=== PATIENT | female | born 1955 | race Hispanic/Latino ===

== ENCOUNTER 2018-02-06 08:31 | Outpatient (CLI) | payer BC, SELFPAY | END 2018-02-06 08:32 | disposition home or self-care (01) | LOC: BICMAMMO 08:31 | PROVIDERS: ATTEND Student in an Organized Health Care Education/Training Program | DX: Z12.31 Encounter for screening mammogram for malignant neoplasm of breast (principal); Z80.3 Family history of malignant neoplasm of breast | CPT/HCPCS: 77063; 77067 ==

== ENCOUNTER 2018-02-16 14:02 | Outpatient (CLI) | payer BC | END 2018-02-16 14:03 | disposition home or self-care (01) | LOC: BICULT 14:02 | PROVIDERS: ATTEND Internal Medicine | DX: Z02.9 Encounter for administrative examinations, unspecified (principal); N18.3 Chronic kidney disease, stage 3 (moderate) | CPT/HCPCS: 76770; 77080 ==

== ENCOUNTER 2018-09-30 07:26 | Emergency (ER) | payer BC ==
[2018-09-30] MEDS ORDERED: Ketorolac Tromethamine 30 MG/ML VIAL ONE (08:43)
== END 2018-09-30 09:09 | disposition home or self-care (01) ==
LOC: ERS 07:26
DX: M62.838 Other muscle spasm (principal); I10 Essential (primary) hypertension; Z79.84 Long term (current) use of oral hypoglycemic drugs; Z79.899 Other long term (current) drug therapy
CPT/HCPCS: 96372; J1885

== ENCOUNTER 2018-10-02 14:03 | Outpatient (CLI) | payer BC ==
--- NOTE | 2018-10-02 16:01 | RAD ---
CERVICAL SPINE THREE VIEWS: History: Neck pain. FINDINGS/IMPRESSION: Vertebral bodies are normal in height. There are degenerative facet changes present. There is some mi nimal disc narrowing at C6-7. No soft tissue swelling. There are some arthritic changes of the spine, mainly related to degenerative facet changes. POS: [facility]
== END 2018-10-02 14:04 | disposition home or self-care (01) ==
LOC: BICRAD 14:03
PROVIDERS: ATTEND Internal Medicine
DX: M54.2 Cervicalgia (principal); M47.812 Spondylosis without myelopathy or radiculopathy, cervical region
CPT/HCPCS: 72040

== ENCOUNTER 2020-12-08 07:58 | Outpatient (CLI) | payer BC ==
--- NOTE | 2020-12-08 08:40 | MMO ---
Bilateral MAMMO Bilat Screen [facility]. CLINICAL HISTORY: Patient is 64 years old and is seen for screening. The patient has the following family history of breast cancer: mother, at age 60. The patient has no personal history of cancer. VIEWS: The views performed were: bilateral craniocaudal with tomosynthesis and bilateral mediolateral oblique with tomosynthesis. FILMS COMPARED: The present examination has been compared to prior imaging studies performed at [facility] on 10/27/2014, 11/21/2015, 11/25/2016 and 02/06/2018. This study has been interpreted with the assistance of computer-aided detection. MAMMOGRAM FINDINGS: There are scattered fibroglandular densities. There are stable benign appearing calcifications seen in both breasts. There are no suspicious masses, suspicious calcifications, or new areas of architectural distortion. IMPRESSION: THERE IS NO MAMMOGRAPHIC EVIDENCE OF MALIGNANCY. A ROUTINE FOLLOW-UP MAMMOGRAM IN 1 YEAR IS RECOMMENDED. THE RESULTS OF THIS EXAM WERE SENT TO THE PATIENT. ACR BI-RADS Category 2 - Benign finding MAMMOGRAPHY NOTE: 1. A negative mammogram report should not delay a biopsy if a dominant of clinically suspicious mass is present. 2. Approximately 10% to 15% of breast cancers are not detected by mammography. 3. Adenosis and dense breasts may obscure an underlying neoplasm. Reported by: LUBA UPTON MD Electonically Signed: [id number]
--- NOTE | 2020-12-08 08:50 | BD ---
DEXA BONE DENSITY SCAN: DATE: 12/08/2020. COMPARISON: None HISTORY: Postmenopausal female undergoing screening for osteoporosis. Lumbar Spine: BMD (g/cm2) L1 0.969 T-Score: -0.2 L2 0.962 T-Score: -0.6 L3 0.988 T-Score: -0.9 L4 0.959 T-Score: -0.9 L1-L4 0.970 T-Score: -0.7 Femoral Neck: 0.881 T-Score: 0.3 Total Femur: 1.050 T-Score: 0.9 The FRAX-WHO fracture risk assessment tool is not reported as all T-scores are at or above -1.0. IMPRESSION: Normal bone mineral density examination. Transcribed Date/Time: 12/08/2020 9:35 AM
== END 2020-12-08 07:59 | disposition home or self-care (01) ==
LOC: BICMAMMO 07:58
PROVIDERS: ATTEND Student in an Organized Health Care Education/Training Program
DX: Z12.31 Encounter for screening mammogram for malignant neoplasm of breast (principal); Z13.820 Encounter for screening for osteoporosis; Z80.3 Family history of malignant neoplasm of breast
CPT/HCPCS: 77063; 77067; 77080

== ENCOUNTER 2021-08-05 08:39 | Outpatient (CLI) | payer BC | END 2021-08-05 08:40 | disposition home or self-care (01) | LOC: BICRAD 08:39 | PROVIDERS: ATTEND Nurse Practitioner Family | DX: S16.1XXA Strain of muscle, fascia and tendon at neck level, initial encounter (principal); M47.812 Spondylosis without myelopathy or radiculopathy, cervical region | CPT/HCPCS: 72052 ==

== ENCOUNTER 2021-10-12 17:30 | Outpatient (CLI) | payer BC | END 2021-10-12 17:31 | disposition home or self-care (01) | LOC: SLEEPLAB 17:30 | PROVIDERS: ATTEND Internal Medicine | DX: G47.9 Sleep disorder, unspecified (principal); R53.83 Other fatigue; R35.1 Nocturia; I10 Essential (primary) hypertension; E11.9 Type 2 diabetes mellitus without complications | CPT/HCPCS: 95806 ==

== ENCOUNTER 2022-10-07 07:45 | Observation (INO) | payer MEDICARE, BC ==
[2022-10-07 08:56] LABS: #Lymphocytes 1.4 thou/uL (1.20-3.40); #Monocytes 0.3 thou/uL (0.11-0.59); #Neutrophils 5.3 thou/uL (1.40-6.50); %Basophils 0.2 % (0.0-1.0); %Eosinophils 0.7 % (0.0-10.0); %Lymphocytes 19.9 % (21.0-51.0); %Monocytes 4.7 % (0.0-10.0); %Neutrophils 74.5 % (42.0-75.0); Hemoglobin 13.9 g/dL (12.0-16.0); Mean Corpuscular HGB CONC 34.8 g/dL (32.0-36.0); Mean Corpuscular Hemoglobin 34.8 pg (27.0-31.0); Mean Platelet Volume 7.9 fL (7.4-10.4); Platelet Count 129 10x3/uL (130-400); RBC Distribution Width 11.4 % (11.5-14.5); Red Blood Cell (RBC) Count 3.99 mill/uL (4.20-5.40); White Blood Cell (WBC) Count 7.2 10x3/uL (4.8-10.8)
[2022-10-07] MEDS ORDERED: Diazepam 10 MG/2 ML SYRINGE ONE (09:02)
[2022-10-07] MEDS ORDERED: Ondansetron PF 4 MG/2 ML Vial ONE ×2 (09:02→13:31)
[2022-10-07 10:14] LABS: Albumin 4.5 g/dL (3.4-4.8)
[2022-10-07 10:15] LABS: Chloride 106 mmol/L (98-107); Potassium 4.1 mmol/L (3.5-5.1); Sodium 139 mmol/L (136-145)
[2022-10-07 10:16] LABS: Calcium 9.4 mg/dL (7.8-10.44); Glucose 95 mg/dL (80-115)
[2022-10-07 10:17] LABS: Globulin 2.8 g/dL (2.4-3.5); Protein, Total 7.3 g/dL (5.8-8.1)
[2022-10-07 10:18] LABS: Anion Gap 16 mmol/L (10-20); Bilirubin, Total 0.6 mg/dL (0.2-1.2); Carbon Dioxide 21 mmol/L (23-31)
[2022-10-07 10:19] LABS: Alkaline Phosphatase 67 U/L (40-110)
[2022-10-07 10:20] LABS: Calc. Creatinine Clearance 0 mL/min (70-130); Estimated GFR 70
[2022-10-07 10:21] LABS: BUN (Urea Nitrogen) 16 mg/dL (9.8-20.1)
[2022-10-07 10:22] LABS: ALT (SGPT) 19 U/L (8-55); AST (SGOT) 17 U/L (5-34)
[2022-10-07 12:15] LABS: Bacteria/HPF None Seen HPF (None Seen); Bilirubin Negative (Negative); Blood, Urine Trace (Negative); Clarity Clear (Clear); Glucose, Urine (Dipstick) Normal (Negative); Ketone, Urine Negative (Negative); Leukocyte Negative Leu/uL (Negative); Nitrite Negative (Negative); Protein, Urine (Dipstick) Negative (Neg-Trace); RBC/HPF 0-3 HPF (0-3); Specific Gravity, Urine 1.022 (1.002-1.036); Squamous Epithelial 0-3 HPF (0-3); Urobilinogen Normal mg/dL (Less than 2); WBC/HPF 0-3 HPF (0-3)
[2022-10-07] MEDS ORDERED: Senokot S 8.6-50 MG TAB PO PRN (13:50)
[2022-10-07] MEDS ORDERED: Ondansetron ODT 4 MG TAB PO PRN (13:50)
[2022-10-07] MEDS ORDERED: Ondansetron PF 4 MG/2 ML Vial IVP PRN (13:50)
[2022-10-07] MEDS ORDERED: Acetaminophen 325 MG TAB PO PRN (13:50)
[2022-10-07] MEDS ORDERED: Dextrose 50% Abboject 50 ML SYRINGE SLOW IVP PRN (13:56)
[2022-10-07] MEDS ORDERED: HumaLOG 300 UNITS/3 ML VIAL SC PRN (13:56)
[2022-10-07] MEDS ORDERED: Dextrose 5% in Water 1,000 ML IV PRN (13:56)
[2022-10-07 18:09] VITALS: BMI 30.2
[2022-10-07] MEDS: Sodium Chloride 0.9% 1,000 ML IV SCH (18:22)
[2022-10-07] MEDS: Meclizine HCl 25 MG TAB PO SCH ×3 (19:30→22:36)
[2022-10-07] MEDS: Famotidine 20 MG TAB PO SCH (20:15)
[2022-10-07 21:13] LABS: SARS-CoV-2 NAA Rapid Test Not Detected (NotDetected)
[2022-10-08] MEDS: Meclizine HCl 25 MG TAB PO SCH ×2 (05:48→14:37)
[2022-10-08] MEDS: Sodium Chloride 0.9% 1,000 ML IV SCH (05:48)
[2022-10-08 05:58] LABS: #Eosinphils 0.1 thou/uL (0.0-0.7); #Lymphocytes 2.3 thou/uL (1.20-3.40); #Monocytes 0.5 thou/uL (0.11-0.59); #Neutrophils 4.8 thou/uL (1.40-6.50); %Basophils 0.3 % (0.0-1.0); %Eosinophils 0.7 % (0.0-10.0); %Lymphocytes 30.2 % (21.0-51.0); %Monocytes 6.5 % (0.0-10.0); %Neutrophils 62.3 % (42.0-75.0); Mean Corpuscular Hemoglobin 34.5 pg (27.0-31.0); Mean Platelet Volume 7.7 fL (7.4-10.4); Platelet Count 170 10x3/uL (130-400); RBC Distribution Width 11.3 % (11.5-14.5); Red Blood Cell (RBC) Count 3.76 mill/uL (4.20-5.40); White Blood Cell (WBC) Count 7.8 10x3/uL (4.8-10.8)
[2022-10-08] MEDS ORDERED: Levothyroxine Sodium 75 MCG TAB PO SCH (06:00)
[2022-10-08 06:23] LABS: Anion Gap 10 mmol/L (10-20); BUN (Urea Nitrogen) 9 mg/dL (9.8-20.1); Calc. Creatinine Clearance 98 mL/min (70-130); Calcium 8.6 mg/dL (7.8-10.44); Carbon Dioxide 25 mmol/L (23-31); Cardiac Risk 4.5 (Less than 4.5); Chloride 110 mmol/L (98-107); Cholesterol 166 mg/dl (< 200 Desired); Estimated GFR 86; Glucose 84 mg/dL (80-115); HDL Cholesterol 37 mg/dL (>60 Neg Risk); LDL Cholesterol, Calculated 99 mg/dL; Potassium 3.7 mmol/L (3.5-5.1); Sodium 141 mmol/L (136-145); Triglycerides 149 mg/dL (Less than 150)
[2022-10-08 06:36] LABS: Thyroid Stimulating Hormone 0.3746 uIU/mL (0.35-4.94)
[2022-10-08] MEDS ORDERED: Amlodipine 5 MG TAB PO SCH (09:00)
[2022-10-08] MEDS ORDERED: Enoxaparin Sodium 40 MG/0.4 ML SYRINGE SC SCH (09:00)
[2022-10-08] MEDS: Famotidine 20 MG TAB PO SCH (09:02)
[2022-10-08 15:53] VITALS: BP 119/69; TEMP 98.7
== END 2022-10-08 17:45 | disposition home or self-care (01) ==
LOC: ERS 07:45 → ERHOLD 13:17 → NEURO 17:26
PROVIDERS: ADMIT Internal Medicine; ATTEND Internal Medicine
DX: R42 Dizziness and giddiness (principal); R11.2 Nausea with vomiting, unspecified; E03.9 Hypothyroidism, unspecified; E11.9 Type 2 diabetes mellitus without complications; I10 Essential (primary) hypertension; E78.5 Hyperlipidemia, unspecified; I08.1 Rheumatic disorders of both mitral and tricuspid valves; Z79.84 Long term (current) use of oral hypoglycemic drugs; Z79.890 Hormone replacement therapy; Z79.899 Other long term (current) drug therapy; Z88.0 Allergy status to penicillin; Z20.822 Contact with and (suspected) exposure to COVID-19
CPT/HCPCS: 70450; 70551; 80048; 80053; 80061; 82962 ×2; 84443; 84481; 84484 ×2; 85025 ×2; 93005; 93306; 93880; 96372; 96374; 96375; 96376; 99285; G0378 ×3; U0002; 36415; 36416; 81003; 81015; J1650; J2405; J3360; J7050; Q0162

== ENCOUNTER 2023-07-03 14:24 | Outpatient (CLI) | payer OTHER | END 2023-07-03 14:25 | disposition home or self-care (01) | LOC: SCSMRI 14:24 | PROVIDERS: ATTEND Nurse Practitioner Family | DX: M47.22 Other spondylosis with radiculopathy, cervical region (principal); M47.813 Spondylosis without myelopathy or radiculopathy, cervicothoracic region; J01.30 Acute sphenoidal sinusitis, unspecified | CPT/HCPCS: 72141 ==

== ENCOUNTER 2023-08-09 10:57 | Outpatient (CLI) | payer OTHER | END 2023-08-09 10:58 | disposition home or self-care (01) | LOC: BICRAD 10:57 | PROVIDERS: ATTEND Family Medicine | DX: M54.50 Low back pain, unspecified (principal); M25.552 Pain in left hip; M25.562 Pain in left knee; M47.816 Spondylosis without myelopathy or radiculopathy, lumbar region | CPT/HCPCS: 72100 ==

== ENCOUNTER 2024-01-15 13:17 | Outpatient (CLI) | payer OTHER | END 2024-01-15 13:18 | disposition home or self-care (01) | LOC: BICMAMMO 13:17 | PROVIDERS: ATTEND Family Medicine | DX: Z12.31 Encounter for screening mammogram for malignant neoplasm of breast (principal); R92.1 Mammographic calcification found on diagnostic imaging of breast | CPT/HCPCS: 77063; 77067 ==